=== PATIENT | male | born 1940 | race Hispanic/Latino ===

== ENCOUNTER 2016-05-01 11:39 | Emergency (ER) | payer OTHER, MEDICARE ==
[~2016-05-01] VITALS: Ht 175.3 cm; Wt 77.1 kg
[~2016-05-01 11:39] MED LIST: ALBUTEROL0.09 MG/A1 INH; ALBUTEROL2.5 MG/3 M INH/SOL; AMOXICILLIN875 M1 PO; MEDROL4 M2 PO; PREDNISONE20 M1 PO; PREDNISONE20 MG PO; PROAIR HFA8.5 GM INH; TESSALON PERLE100 M1 PO; ZITHROMAX Z-PA250 M1 PO; ZITHROMAX250 M2 PO
--- NOTE | 2016-05-01 12:08 | ED DYSPNEA/ASTHMA COMPLAINT ---
History of Present Illness General Chief Complaint: Dyspnea (COPD, CHF, Other) Stated Complaint: DYSPNEA Source: patient, family, old records Exam Limitations: no limitations Vital Signs & Intake/Output Vital Signs & Intake/Output Vital Signs Date Time Temp Pulse Resp B/P Pulse O2 O2 Flow FiO2 Ox Delivery Rate 05/01 1406 96.9 89 20 117/69 96 Room Air 05/01 1225 96 05/01 1211 96 Room Air 05/01 1146 97.1 88 18 146/82 96 Room Air Allergies Coded Allergies: No Known Allergies (12/13/15) Reconcile Medications Albuterol Sulfate (Proair Hfa) 8.5 GM HFA.AER.AD 2 PUF INH Q4-6 PRN PRN asthma Albuterol Sulfate 2.5 MG/3 ML (0.083 %) VIAL.NEB 1 Vial INH/JULIA Q4P PRN wheezing Albuterol Sulfate (Proair Hfa) 90 MCG HFA.AER.AD 2 PUF INH Q4-6 PRN PRN BRONCHITIS Amoxicillin 500 MG CAPSULE 1 CAP PO TID BRONCHITIS Prednisone 20 MG TABLET 1 TAB PO AD BRONCHITIS 3 TABS PO DAY 1-3 2 TABS PO DAY 4-6 1 TAB PO DAY 7-9 Triage Note: 75 Y/O MALE C/O 2 WEEK HISTORY COUGH, CONGESTION AND INTERMITTENT FEVERS. HAS BEEN TAKING ROBITUSSIN AND TYLENOL WITH NO RELIEF. STATES HE THOUGHT "IT WOULD JUST GO AWAY". DENIES PAIN AT PRESENT. STATES HE HAS HAD INTERMITTENT CHEST PAIN. REPORTS COUGH WITH "WHITE" PHLEGM. AFEBRILE. Triage Nurses Notes Reviewed? yes HPI: 75-year-old male here with a two week complaint of 2 weeks of cough congestion and wheezing and mildly productive sputum with clear phlegm. He denies any chest pain or edema. He states he gets this frequently and has been seen in the ER several times for this over the last few years. I have reviewed his previous records. He typically gets a course of antibiotic steroids and inhalers and his symptoms resolved. He has no smoking history. He thinks he may have had a tactile fever on and off for the last 2 weeks. He states he does not have medical insurance and does not see a doctor regularly. The symptoms are moderate. He has worsening dyspnea on exertion with wheezing and his symptoms are worse when he lies flat at night as well. (LUBRADHA HERMAN) Past History Travel History Traveled to [place] past 21 day No Medical History Any Pertinent Medical History? 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 No (RDAHA SAEZ) Review of Systems Review of Systems Constitutional: Reports: see HPI. EENTM: Reports: no symptoms. Respiratory: Reports: see HPI. Cardiovascular: Reports: no symptoms. GI: Reports: no symptoms. Genitourinary: Reports: no symptoms. Musculoskeletal: Reports: no symptoms. Skin: Reports: no symptoms. Neurological/Psychological: Reports: no symptoms. Hematologic/Endocrine: Reports: no symptoms. Immunologic/Allergic: Reports: no symptoms. All Other Systems: Reviewed and Negative (RADHA SAEZ) Physical Exam Physical Exam General Appearance: well developed/nourished Respiratory: chest non-tender, no respiratory distress, POSITIVE WHEEZING THROUGHOUT EXPIRATORY AND INSPIRATORY PHASE WHICH IS MODERATE. pROLONGED EXPIRATORY PHASE NOTED. nO ACCESSORY MUSCLE USE, NO RESPIRATORY DISTRESS. NO RHONCHI Cardiovascular: regular rate/rhythm Comments: Well-developed well-nourished no apparent distress. HEENT: Atraumatic, extraocular motion intact Neck: Supple, no lymphadenopathy, no JVD Back: Nontender Respiratory: No respiratory distress Extremities: No edema, full range of motion Neuro: Alert and oriented x3 Psych: Mood affect normal, normal memory normal judgment. Skin: Warm and dry, no rash on exposed skin Core Measures ACS in differential dx? Yes Severe Sepsis Present: No Septic Shock Present: No (RADHA SAEZ) Progress Differential Diagnosis: asthma, AMI, altitude sickness, bronchitis, costochondritis, CHF, COPD, musculoskeletal pain, pericarditis, pulmonary embolism, pneumonia, pneumothorax, rib fracture, unstable angina Plan of Care: Orders Procedure Date/time Status AEROSOL (GEN) 05/01 1225 Complete EKG 05/01 1143 Active Diagnostic Imaging: Viewed by Me: Radiology Read. Discussed w/RAD: Radiology Read. CXR Impression: PATIENT: SJ NEWBERRY PRESENT AGE: 75 PATIENT ACCOUNT NO: [id number] : 41 LOCATION: [facility] ORDERING PHYSICIAN: RADHA SCOTT SERVICE DATE: 05/01/161206 EXAM TYPE: RAD - XRY-CHEST XRAY, PA AND LATERAL EXAMINATION: CHEST 2 VIEWS CLINICAL INFORMATION: COUGH, WHEEZING, SOB. COMPARISON: 05/17/2015. TECHNIQUE: PA and lateral views of the chest were obtained. FINDINGS: The lungs are well expanded. Mild chronic appearing coarsened reticular markings again seen but no superimposed focal infiltrate, effusion, edema, or pneumothorax. Cardiac and mediastinal silhouettes are within normal limits for technique. No acute bony abnormality seen IMPRESSION: No evidence of acute disease DICTATED BY: RADHA MARTINS MD DATE/TIME DICTATED:05/01/161326 RUBBER COMPOUNDER:ASHLEY DATE/TIME TRANSCRIBED:05/01/161326 Initial ED EKG: NSR, rate (88), nonspecific ST T wave chg Prior EKG: unchanged Rhythm Strip: normal sinus rhythm Comments: DuoNeb Nebulizer treatment given. We'll obtain chest x-ray. Patient reevaluated after nebulizer treatment x-ray. X-rays unremarkable. He feels much improved after his nebulizer treatment. Wheezing resolved. He has bronchitis, I do not feel as though this is a cardiac condition. He will be treated with prednisone and albuterol and amoxicillin, they would like something inexpensive because they have no insurance. He was urged to follow up with primary care doctor or return here with worsening symptoms. (RADHA SAEZ) Departure Departure Disposition: HOME OR SELF CARE Condition: Stable Clinical Impression Primary Impression: Bronchitis Referrals: PATIENT HAS NO PRIMARY CARE DR (PCP/Family) CHIQUI GOMEZ MD Additional Instructions: Take antibiotics as directed for infection. Continue the inhaler and start prednisone as directed. Please follow-up with a primary care doctor or return here with worsening symptoms Departure Forms: Customer Survey General Discharge Information Prescriptions: Current Visit Scripts Amoxicillin 1 CAP PO TID #30 CAP Albuterol Sulfate (Proair Hfa) 2 PUF INH Q4-6 PRN PRN BRONCHITIS #1 INHAL Prednisone 1 TAB PO AD #18 3 TABS PO DAY 1-3 2 TABS PO DAY 4-6 1 TAB PO DAY 7-9 (RADHA SAEZ) PA/MUTUAL [employer]D SALES AGENT Co-Sign Statement Statement: ED Attending supervision documentation- [X] I saw and evaluated the patient. I have also reviewed all the pertinent lab results and diagnostic results. I agree with the findings and the plan of care as documented in the PA's/MUTUAL FUND SALES AGENT's documentation. [X] I have reviewed the ED Record and agree with the PA's/MUTUAL [employer]D SALES AGENT's documentation. [] Additions or exceptions (if any) to the PAs/MUTUAL FUND SALES AGENT's note and plan are summarized below: [] (KI SANTOS,CHUCK Daley) Critical Care Note Critical Care Note Critical Care Time: non-applicable (QUIN SCOTT,RADHA)
--- NOTE | 2016-05-01 13:31 | RADIOLOGY REPORT ---
EXAMINATION: CHEST 2 VIEWS CLINICAL INFORMATION: COUGH, WHEEZING, SOB. COMPARISON: 05/17/2015. TECHNIQUE: PA and lateral views of the chest were obtained. FINDINGS: The lungs are well expanded. Mild chronic appearing coarsened reticular markings again seen but no superimposed focal infiltrate, effusion, edema, or pneumothorax. Cardiac and mediastinal silhouettes are within normal limits for technique. No acute bony abnormality seen IMPRESSION: No evidence of acute disease
[2016-05-01] MEDS ORDERED: PREDNISONE20 M1 PO ×2 (13:59→14:03)
[2016-05-01] MEDS ORDERED: AMOXICILLIN500 M2 PO (13:59)
[2016-05-01] MEDS ORDERED: PROAIR HFA8.5 GM INH (13:59)
[2016-05-01 14:06] VITALS: BP 117/69
== END 2016-05-01 14:16 ==
LOC: ERH 11:39
DX: J40 Bronchitis, not specified as acute or chronic (principal)
CPT/HCPCS: 1263; 93005; 93010